=== PATIENT | male | born 1975 | race Caucasian/White ===

== ENCOUNTER → 2016-08-05 | Outpatient (CLI) | payer OTHER, BC ==
[~2016-08-05] MED LIST: FLEX5TAB3 PO; IBUP200T2 PO
--- NOTE | 2016-08-07 16:29 | REP ---
LEFT KNEE: REASON: Sprain. COMPARISON: None. FINDINGS: The compartments are symmetric and relatively well maintained. There is no acute fracture or destructive osseous lesion. Signed by Anoop Merida DO 08/07/2016 05:12 P
--- NOTE | 2016-08-07 16:31 | REP ---
LEFT HAND: REASON: Attention 4th metacarpal and 4th digit. FINDINGS: The joint spaces are symmetric and relatively well maintained. There is no evidence of acute fracture or destructive osseous lesion. IMPRESSION: Negative hand. Signed by Anoop Merida DO 08/07/2016 05:12 P
== END ==
LOC: M ADAMS 16:17
PROVIDERS: ATTEND Physician Assistant Medical
DX: S63.614A Unspecified sprain of right ring finger, initial encounter (principal); S83.92XA Sprain of unspecified site of left knee, initial encounter; X58.XXXA Exposure to other specified factors, initial encounter; Y92.89 Other specified places as the place of occurrence of the external cause; Y93.89 Activity, other specified; Y99.8 Other external cause status

== ENCOUNTER → 2018-02-13 | Outpatient (REF) | payer OTHER ==
[2018-02-13 14:06] LABS: ALBUMIN 3.4 GM/DL (3.2-5.2); ALBUMIN/GLOBULIN RATIO 1.06 (1.00-1.93); ALKALINE PHOSPHATASE 68 U/L (45-117); ALT/SGPT 56 U/L (12-78); AST/SGOT 40 U/L (7-37); BILIRUBIN,DIRECT 0.1 MG/DL (0.0-0.2); BILIRUBIN,TOTAL 0.4 MG/DL (0.2-1.0); CHOLESTEROL LEVEL 191 MG/DL (<200); CHOLESTEROL RISK RATIO 5.305 (<5); HDL CHOLESTEROL 36 MG/DL (>40); LDL CHOLESTEROL 131 MG/DL (<100); NON-HDL-C 155 MG/DL; TOTAL PROTEIN 6.6 GM/DL (6.4-8.2); TRIGLYCERIDES LEVEL 118 MG/DL (<150)
== END ==
LOC: M LABDRWAD 13:23
DX: I25.10 Atherosclerotic heart disease of native coronary artery without angina pectoris (principal)

== ENCOUNTER → 2018-04-24 | Outpatient (CLI) | payer BC, OTHER ==
--- NOTE | 2018-04-24 21:24 | REP ---
Clinical: Shortness of breath . Comparison: 12/31/2011 . Technique: PA and lateral. Findings: The mediastinum and cardiac silhouette are normal. The lung edge are clear and without acute consolidation, effusion, or pneumothorax. The skeletal structures are intact and normal. Impression: 1. No acute cardiopulmonary process. If the patient remains symptomatic consider chest CT for further investigation. Electronically Signed by oClin Ann MD 04/24/2018 09:15 P
== END ==
LOC: M SMT 14:50
PROVIDERS: ATTEND Internal Medicine Pulmonary Disease
DX: R06.02 Shortness of breath (principal)

== ENCOUNTER → 2018-05-17 | Outpatient (CLI) | payer BC, OTHER ==
--- NOTE | 2018-05-21 20:53 | SLEEPCENT ---
DATE OF PROCEDURE: 05/17/2018 ORDERED BY : Dr. Josue. Nocturnal polysomnography was performed for evaluation of sleep physiology in this patient with history of excessive snoring, excessive somnolence, and nonrestorative sleep who has comorbidities of coronary artery disease. 7 hours and 36 minutes of data were reviewed. There were 226 minutes of sleep identified. Sleep latency was prolonged at 97 minutes. REM latency was prolonged at 132 minutes. Sleep architecture initially fragmented, did improve late in the study. There were two REM cycles noted. Overall sleep efficiency was reduced at 50% due to periods of wake after sleep onset. The patient's electrocardiogram showed a sinus rhythm with an average heart rate of 60 beats minute rate ranged 50-80 beats per minute. EEG showed fairly normal waveforms for awake and sleep. There were no focal events identified. There were 289 respiratory events identified of 10 seconds in duration or greater for an apnea-hypopnea index of 76.7. The events were both obstructive mixed and central. 133 of 289 events were either mixed or central. The events were not exclusive to sleep stage nor body posture. Arousals from respiratory events were seen 25.2 times per hour and oxygen desaturations were seen into the 80's. There was also some limb activity noted but limb movement arousal index was only 1.1. IMPRESSION: Severe obstructive and possibly complex of sleep apnea syndrome (G47.31, G47.33). Apnea-hypopnea index 76.7. RECOMMENDATIONS: The patient should be encouraged to return to sleep disorder center at his earliest convenience for pressure therapy. In the interim alcohol and sedative avoidance should be practiced and cautioned exercised during operation of motor vehicles. Given the occurrence of central and mixed a bilevel device and backup rate may be necessary during the titration.
== END ==
LOC: M SLEEP 19:53
PROVIDERS: ATTEND Internal Medicine Pulmonary Disease
DX: G47.31 Primary central sleep apnea (principal); G47.33 Obstructive sleep apnea (adult) (pediatric)

== ENCOUNTER → 2018-07-05 | Outpatient (CLI) | payer BC, OTHER ==
--- NOTE | 2018-07-09 06:57 | SLEEPCENT ---
DATE OF PROCEDURE: 07/05/2018 ORDERED BY: Dr. Josue Nocturnal polysomnography was performed for the titration of pressure therapy in this patient with obstructive sleep apnea syndrome and apnea-hypopnea index of 76.7. For testing, a Present full-face mask of large size was used and 4 cm of water pressure were applied to the circuit and the lights were extinguished. 7 hours and 32 minutes of data were reviewed. There were 247 minutes of sleep identified. Sleep latency was prolonged at 75 minutes. Rapid eye movement (REM) latency was short at 59. Sleep architecture was good with 3 REM cycles. Overall sleep efficiency was 55.7%. The electrocardiogram showed a sinus rhythm with an average heart rate of 66 beats per minute. Electroencephalogram (EEG) showed normal waveforms for awake and sleep. Respiratory events were best palliated with CPAP at a pressure of +13. There was some limb activity noted, one train of 30 events and limb movement arousal index of 5.6. IMPRESSION: Obstructive sleep apnea syndrome (G47.33) RECOMMENDATION: Nightly use of pressure therapy at 13 cm of water.
== END ==
LOC: M SLEEP 20:04
PROVIDERS: ATTEND Internal Medicine Pulmonary Disease
DX: G47.33 Obstructive sleep apnea (adult) (pediatric) (principal)

== ENCOUNTER → 2018-07-10 | Outpatient (REF) | payer OTHER | LOC: M LAB REF 16:09 | PROVIDERS: ATTEND Otolaryngology | DX: H92.11 Otorrhea, right ear (principal) ==

== ENCOUNTER → 2018-08-06 | Outpatient (CLI) | payer BC, OTHER ==
[~2018-08-06] MED LIST changes: +METHACHOLINE KIT (J7674) INH ONE
--- NOTE | 2018-08-06 08:36 | PFTRPT ---
Site: [facility], [address] [place], [address] ID: [id number] Name: TREVIN FRAGOSO Visit Date: 08/06/2018 Second ID: [id number] Referring Doctor: Roger Josue MD Reviewing Doctor: Roger Josue MD [employer] Pianist: Shaggy SHELBY RRT Age: 42 : 1975 Sex: Male Race: Height: 71.00 Inches Weight: 280.00 Lbs BSA: 2.43 Order IDs: [id number] Requested Test(s): <RESP-PFT.METH CHAL> Diagnosis: R06.02 puffs of albuterol for post bronchodilator. Review Status: Not Reviewed Pre-Bronch Post-Bronch Pred Actual %Pred Actual %Chng SPIROMETRY FVC (L) 5.38 5.10 94 5.03 -1 FEV1 (L) 4.23 3.70 87 3.48 -5 FEV1/FVC (%) 79 72 91 69 -4 FEF 25% (L/sec) 9.01 5.64 62 5.16 -8 FEF 50% (L/sec) 5.89 3.30 56 2.90 -12 FEF 75% (L/sec) 2.04 1.28 62 0.99 -22 FEF 25-75% (L/sec) 3.87 2.82 72 2.32 -17 FEF Max (L/sec) 10.29 6.93 67 6.68 -3 FIVC (L) 4.68 5.24 11 FIF 50% (L/sec) 5.14 2.75 53 4.47 62 FIF Max (L/sec) 3.08 4.47 45 Expiratory Time (sec) 7.66 8.28 8 Back Extrap Vol (L) 0.13 0.09 -25 Time To FEFmax (sec) 0.092 0.082 -10
== END ==
LOC: M CARPUL 07:32
PROVIDERS: ATTEND Internal Medicine Pulmonary Disease
DX: R06.2 Wheezing (principal)
CPT/HCPCS: 94070; J7674

== ENCOUNTER 2019-02-05 06:46 | Day surgery (SDC) | payer BC, OTHER ==
[~2019-02-05] VITALS: Ht 180.3 cm; Wt 117.9 kg
[~2019-02-05 06:46] MED LIST changes: +ASPI81TA85 PO; +ATOR80TA59 PO; +BREO1INH3 INH; +FLON1SPR; +LORA-243 PO; -METHACHOLINE KIT (J7674) INH ONE; +METO25TA4 PO; +MULTCAP PO; +NITR0.4S14 SL; +OMEP40CA97 PO; +VENTAER INH; +VITA50005 PO
[2019-02-05] MEDS ORDERED: NS 1,000 ML IV ONE (07:00)
[2019-02-05] MEDS ORDERED: PROPOFOL 200 MG/20 ML VIAL As Ordered ONE ×3 (07:06→08:14)
[2019-02-05] MEDS ORDERED: LIDOCAINE 2% INJ 100 MG/5 ML SDV (FOR ANES.) As Ordered ONE (07:09)
[2019-02-05] MEDS ORDERED: fentaNYL 100 MCG/2 ML INJECTION (J3010) As Ordered ONE (07:13)
[2019-02-05] MEDS ORDERED: ALBUTEROL SULFATE 2.5 MG/0.5 ML INH NEB SOLN As Ordered ONE (07:28)
--- NOTE | 2019-02-05 07:58 | ROOR ---
Patient Name: Nathan Spears Procedure Date: 02/05/2019 7:45 AM Date of : 1975 Age: 43 Room: [facility] Gender: Male Note Status: Finalized Procedure: Upper Endoscopy + Biopsies Indications: Heartburn, Exclusion of Gallegos's esophagus Providers: Abraham Zaidi MD Referring MD: EPHRAIM Angel Requesting Provider: Medicines: Monitored Anesthesia Care Complications: No immediate complications. Procedure: Pre-Anesthesia Assessment: - The heart rate, respiratory rate, oxygen saturations, blood pressure, adequacy of pulmonary ventilation, and response to care were monitored throughout the procedure. The Endoscope was introduced through the mouth, and advanced to the second part of duodenum. The upper GI endoscopy was accomplished without difficulty. The patient tolerated the procedure well. Findings: The Z-line was irregular and was found 39 cm from the incisors. Multiple biopsies were obtained with cold forceps for evaluation to rule out Gallegos's Esophagus randomly at the gastroesophageal junction. A medium-sized hiatal hernia was present. No other significant abnormalities were identified in a careful examination of the stomach. The exam of the duodenum was otherwise normal. Impression: - Z-line irregular, 39 cm from the incisors. - Medium-sized hiatal hernia. - Multiple biopsies were obtained at the gastroesophageal junction. - The examination was otherwise normal. Recommendation: - Patient has a contact number available for emergencies. The signs and symptoms of potential delayed complications were discussed with the patient. Return to normal activities tomorrow. Written discharge instructions were provided to the patient. - High fiber diet. - Discharge patient to home. - Follow an antireflux regimen. - Continue present medications. - Await pathology results. - Telephone GI clinic for pathology results in 1 week. - Return to referring physician. - The findings and recommendations were discussed with the patient's family. Abraham Zaidi MD Abraham Zaidi MD 02/05/2019 7:58:02 AM Electronically signed by Abraham Zaidi MD Number of Addenda: 0 Note Initiated On: 02/05/2019 7:45 AM Estimated Blood Loss: Estimated blood loss: none.
[2019-02-05] MEDS ORDERED: ALBUTEROL SULFATE 2.5 MG/0.5 ML INH NEB SOLN INH ONE (08:00)
--- NOTE | 2019-02-05 08:28 | ROOR ---
Patient Name: Nathan Spears Procedure Date: 02/05/2019 7:46 AM Date of : 1975 Age: 43 Room: [facility] Gender: Male Note Status: Finalized Procedure: Total Colonoscopy to Cecum + Cold Snare Polypectomy + Hemoclips Indications: High risk colon cancer surveillance: Personal history of colonic polyps, Last colonoscopy: 2014 Providers: Abraham Zaidi MD Referring MD: EPHRAIM Angel Requesting Provider: Medicines: Monitored Anesthesia Care Complications: No immediate complications. Procedure: Pre-Anesthesia Assessment: - The heart rate, respiratory rate, oxygen saturations, blood pressure, adequacy of pulmonary ventilation, and response to care were monitored throughout the procedure. The Colonoscope was introduced through the anus and advanced to the cecum, identified by appendiceal orifice and ileocecal valve. The colonoscopy was performed without difficulty. The patient tolerated the procedure well. The quality of the bowel preparation was excellent. Findings: The perianal and digital rectal examinations were normal. Non-bleeding internal hemorrhoids were found during retroflexion. The hemorrhoids were small and Grade I (internal hemorrhoids that do not prolapse). Scattered small-mouthed diverticula were found in the recto-sigmoid colon, sigmoid colon and descending colon. Multiple sessile polyps were found in the ascending colon. The polyps were small in size. These polyps were removed with a cold snare. Resection and retrieval were complete. A medium polyp was found at 30 cm proximal to the anus. The polyp was semi-pedunculated. The polyp was removed with a cold snare. Resection and retrieval were complete. To prevent bleeding after the polypectomy, two hemostatic clips were successfully placed (MR conditional). There was no bleeding at the end of the procedure. The exam was otherwise without abnormality on direct and retroflexion views. Impression: - Non-bleeding internal hemorrhoids. - Diverticulosis in the recto-sigmoid colon, in the sigmoid colon and in the descending colon. - Multiple small polyps in the ascending colon, removed with a cold snare. Resected and retrieved. - One medium polyp at 30 cm proximal to the anus, removed with a cold snare. Resected and retrieved. Clips (MR conditional) were placed. - The examination was otherwise normal on direct and retroflexion views. - The exam was otherwise normal to the cecum. Recommendation: - Patient has a contact number available for emergencies. The signs and symptoms of potential delayed complications were discussed with the patient. Return to normal activities tomorrow. Written discharge instructions were provided to the patient. - High fiber diet. - Discharge patient to home. - Continue present medications. - Await pathology results. - Telephone GI clinic for pathology results in 1 week. - Repeat colonoscopy for surveillance based on pathology results. - Return to referring physician. - The findings and recommendations were discussed with the patient's family. Abraham Zaidi MD Abraham Zaidi MD 02/05/2019 8:27:54 AM Electronically signed by Abraham Zaidi MD Number of Addenda: 0 Note Initiated On: 02/05/2019 7:46 AM Estimated Blood Loss: Estimated blood loss: none.
[2019-02-05 08:45] VITALS: BP 110/61
== END 2019-02-05 08:52 | disposition home or self-care (01) ==
LOC: M OPP 06:46
PROVIDERS: ATTEND Internal Medicine Gastroenterology
DX: Z12.11 Encounter for screening for malignant neoplasm of colon (principal); Z86.010 Personal history of colon polyps; K64.0 First degree hemorrhoids; K57.30 Diverticulosis of large intestine without perforation or abscess without bleeding; D12.2 Benign neoplasm of ascending colon; D12.5 Benign neoplasm of sigmoid colon; R12 Heartburn; K22.8 Other specified diseases of esophagus; K44.9 Diaphragmatic hernia without obstruction or gangrene; Z95.5 Presence of coronary angioplasty implant and graft; R00.8 Other abnormalities of heart beat; I25.10 Atherosclerotic heart disease of native coronary artery without angina pectoris; I25.2 Old myocardial infarction; I10 Essential (primary) hypertension; E78.5 Hyperlipidemia, unspecified; J45.909 Unspecified asthma, uncomplicated; G47.30 Sleep apnea, unspecified; R06.83 Snoring; Z87.891 Personal history of nicotine dependence; Z83.71 Family history of colonic polyps; Z79.82 Long term (current) use of aspirin; Z79.899 Other long term (current) drug therapy
CPT/HCPCS: 43239; 45385; 88305; J3010

== ENCOUNTER 2022-10-16 12:28 | Emergency (ER) | payer BC, OTHER ==
[~2022-10-16] VITALS: Ht 180.3 cm; Wt 104.5 kg
[~2022-10-16 12:28] MED LIST changes: -ASPI81TA85 PO; +ASPI81TA86 PO; +OMEP40CA4 PO; -OMEP40CA97 PO
[2022-10-16] MEDS ORDERED: ASPIRIN 81MG CHEW TABLET PO ONE ×2 (12:45→14:55)
[2022-10-16 13:13] LABS: BASO # 0.1 10^3/uL (0.0-0.2); BASO % 0.7 % (0.0-1.0); EOS % 0.6 % (0.0-3.0); HEMATOCRIT 47.6 % (42.0-52.0); HEMOGLOBIN 16.2 g/dl (13.5-17.5); LYMPH # 1.2 10^3/uL (1.5-5.0); LYMPH % 16.2 % (24.0-44.0); MEAN CORPUSCULAR HEMOGLOBIN 33.5 pg (27.0-33.0); MEAN CORPUSCULAR VOLUME 98.6 fl (80.0-96.0); MONO % 13.8 % (2.0-8.0); NEUTROPHILS # 4.9 10^3/uL (1.5-8.5); NEUTROPHILS % 67.9 % (36.0-66.0); PLATELET COUNT, AUTOMATED 170 10^3/uL (150-450); RED BLOOD COUNT 4.83 10^6/uL (4.30-6.10); WHITE BLOOD COUNT 7.2 10^3/uL (4.0-10.0)
[2022-10-16 13:32] LABS: CK-MB VALUE MASS 1.9 NG/ML (<3.6)
[2022-10-16 13:34] LABS: LIPASE 55 U/L (12-53)
[2022-10-16 13:36] LABS: ALBUMIN 3.8 G/DL (3.2-5.2); ALKALINE PHOSPHATASE 59 U/L (46-116); ALT/SGPT 47 U/L (7.0-40); AST/SGOT 43 U/L (<34); BILIRUBIN,DIRECT 0.2 MG/DL (<0.4); BILIRUBIN,TOTAL 0.7 MG/DL (0.3-1.2); BLOOD UREA NITROGEN 17 MG/DL (9-23); CALCIUM LEVEL 9.9 MG/DL (8.5-10.1); CARBON DIOXIDE LEVEL 24 MMOL/L (20-31); CHLORIDE LEVEL 104 MMOL/L (98-107); CREATININE FOR GFR 0.87 MG/DL (0.70-1.30); GLOMERULAR FILTRATION RATE > 60.0 (>60); GLUCOSE, FASTING 118 MG/DL (60-100); POTASSIUM SERUM 4.3 MMOL/L (3.5-5.1); SODIUM LEVEL 139 MMOL/L (136-145); TOTAL PROTEIN 6.9 G/DL (5.7-8.2)
[2022-10-16 13:37] LABS: THYROID STIMULATING HORMONE 1.912 uIU/ML (0.55-4.78)
[2022-10-16 13:42] LABS: CPK CREATINE PHOSPHOKINASE 117 U/L (46-171); MB/CK RELATIVE INDEX 1.62 (< OR =4)
[2022-10-16 14:36] LABS: CK-MB VALUE MASS < 1.0 NG/ML (<3.6)
[2022-10-16 14:42] LABS: CPK CREATINE PHOSPHOKINASE 112 U/L (46-171); MB/CK RELATIVE INDEX 0.89 (< OR =4)
[2022-10-16] MEDS ORDERED: NITROGLYCERIN 2% OINT 1 GM *U/D* PKT TOP ONE (14:55)
[2022-10-16] MEDS ORDERED: HEPARIN SOD (PORCINE) 5000UNITS/ML 1ML VIAL/SYRINGE IV ONE (14:55)
[2022-10-16] MEDS ORDERED: HEPARIN DRIP 25,000 UNITS in IV 1 EA IV SCH (14:55)
[2022-10-16 15:21] VITALS: BP 118/82
[2022-10-16 16:22] VITALS: BP 134/88; TEMP 97.8; O2SAT 100
[2022-10-16 17:23] LABS: CK-MB VALUE MASS < 1.0 NG/ML (<3.6)
[2022-10-16 17:24] LABS: CPK CREATINE PHOSPHOKINASE 86 U/L (46-171); MB/CK RELATIVE INDEX 1.16 (< OR =4)
== END 2022-10-16 16:46 | disposition short-term general hospital (02) ==
LOC: EDBD 12:28 → EDSEX 12:28 → M ED 12:28
DX: I24.9 Acute ischemic heart disease, unspecified (principal); R00.1 Bradycardia, unspecified; I10 Essential (primary) hypertension; E78.5 Hyperlipidemia, unspecified; Z87.891 Personal history of nicotine dependence; Z79.52 Long term (current) use of systemic steroids; Z79.810 Long term (current) use of selective estrogen receptor modulators (SERMs); Z79.899 Other long term (current) drug therapy

== ENCOUNTER 2023-01-14 13:11 | Emergency (ER) | payer BC, OTHER ==
[~2023-01-14] VITALS: Ht 180.3 cm; Wt 95.9 kg
[2023-01-14 13:31] VITALS: TEMP 98.4
[2023-01-14] MEDS ORDERED: LORazepam 2 MG/ML 1ML VIAL IV STA (13:35)
[2023-01-14 13:55] LABS: BASO % 0.3 % (0.0-1.0); EOS # 0.1 10^3/uL (0.0-0.5); EOS % 0.7 % (0.0-3.0); HEMATOCRIT 37.7 % (42.0-52.0); HEMOGLOBIN 13.3 g/dl (13.5-17.5); LYMPH % 13.4 % (24.0-44.0); MEAN CORPUSCULAR HEMOGLOBIN 32.3 pg (27.0-33.0); MEAN CORPUSCULAR HGB CONC 35.3 g/dl (32.0-36.5); MEAN CORPUSCULAR VOLUME 91.5 fl (80.0-96.0); MONO # 1.3 10^3/uL (0.0-0.8); MONO % 18.2 % (2.0-8.0); NEUTROPHILS # 4.8 10^3/uL (1.5-8.5); NEUTROPHILS % 66.8 % (36.0-66.0); PLATELET COUNT, AUTOMATED 142 10^3/uL (150-450); RED BLOOD COUNT 4.12 10^6/uL (4.30-6.10); WHITE BLOOD COUNT 7.2 10^3/uL (4.0-10.0)
[2023-01-14 14:17] LABS: ETHYL ALCOHOL (ETHANOL) 0.007 % (0.000-0.010)
[2023-01-14 14:19] LABS: BLOOD UREA NITROGEN 10 MG/DL (9-23); CARBON DIOXIDE LEVEL 24 MMOL/L (20-31); CHLORIDE LEVEL 104 MMOL/L (98-107); CREATININE FOR GFR 0.81 MG/DL (0.70-1.30); GLOMERULAR FILTRATION RATE > 60.0 (>60); GLUCOSE, FASTING 111 MG/DL (60-100); MAGNESIUM LEVEL 1.6 MG/DL (1.8-2.4); SODIUM LEVEL 139 MMOL/L (136-145)
[2023-01-14 14:25] LABS: CPK CREATINE PHOSPHOKINASE 96 U/L (46-171)
[2023-01-14] MEDS ORDERED: MAG SULF 1GM/100ML (MAG RUN) 1 GM in IV 1 EA IV ONE (14:45)
[2023-01-14 15:30] VITALS: BP 116/73
[2023-01-14] MEDS ORDERED: SLOWTAB2 PO (16:51)
[2023-01-14 17:26] VITALS: O2SAT 96
== END 2023-01-14 17:48 | disposition home or self-care (01) ==
LOC: EDBD 13:11 → M ED 13:11
DX: G40.509 Epileptic seizures related to external causes, not intractable, without status epilepticus (principal); E83.42 Hypomagnesemia; D69.6 Thrombocytopenia, unspecified; G47.33 Obstructive sleep apnea (adult) (pediatric); K21.9 Gastro-esophageal reflux disease without esophagitis; I10 Essential (primary) hypertension; J45.909 Unspecified asthma, uncomplicated; E78.5 Hyperlipidemia, unspecified; F10.10 Alcohol abuse, uncomplicated; Z86.79 Personal history of other diseases of the circulatory system; Z79.52 Long term (current) use of systemic steroids; Z79.82 Long term (current) use of aspirin; Z79.810 Long term (current) use of selective estrogen receptor modulators (SERMs); Z79.899 Other long term (current) drug therapy
CPT/HCPCS: 70450; 71045; 80048; 82077; 82550; 83735; 84484; 85025; 93005; 93041; 94760; 96374; 96375; 99285; J2060; J3475

== ENCOUNTER → 2023-11-16 | Outpatient (CLI) | payer BC ==
[~2023-11-16] MED LIST changes: +SLOWTAB2 PO
[2023-11-16 14:51] LABS: BASO % 0.8 % (0.0-1.0); EOS # 0.1 10^3/uL (0.0-0.5); EOS % 1.8 % (0.0-3.0); HEMATOCRIT 43.6 % (42.0-52.0); HEMOGLOBIN 14.9 g/dl (13.5-17.5); LYMPH # 1.2 10^3/uL (1.5-5.0); LYMPH % 24.6 % (24.0-44.0); MEAN CORPUSCULAR HEMOGLOBIN 33.1 pg (27.0-33.0); MEAN CORPUSCULAR HGB CONC 34.2 g/dl (32.0-36.5); MEAN CORPUSCULAR VOLUME 96.9 fl (80.0-96.0); MONO % 20.8 % (2.0-8.0); NEUTROPHILS # 2.6 10^3/uL (1.5-8.5); NEUTROPHILS % 51.6 % (36.0-66.0); PLATELET COUNT, AUTOMATED 119 10^3/uL (150-450)
[2023-11-16 15:22] LABS: IRON (FE) 50 UG/DL (65-175); PERCENT SATURATION 15.4 % (19.7-50.0); TOTAL IRON BINDING CAPACITY 324 UG/DL (250-425)
[2023-11-16 15:23] LABS: ALKALINE PHOSPHATASE 56 U/L (46-116); ALT/SGPT 102 U/L (7.0-40); AST/SGOT 167 U/L (<34); BILIRUBIN,TOTAL 0.6 MG/DL (0.3-1.2); BLOOD UREA NITROGEN 11 MG/DL (9-23); CALCIUM LEVEL 9.4 MG/DL (8.5-10.1); CARBON DIOXIDE LEVEL 25 MMOL/L (20-31); CHLORIDE LEVEL 105 MMOL/L (98-107); CHOLESTEROL LEVEL 168 MG/DL (<200); CHOLESTEROL RISK RATIO 2.14 (<5); CREATININE FOR GFR 0.88 MG/DL (0.70-1.30); FERRITIN 596.2 NG/ML (10.5-307.3); GLOMERULAR FILTRATION RATE > 60.0 (>60); GLUCOSE, FASTING 77 MG/DL (60-100); HDL CHOLESTEROL 78.5 MG/DL (>40); HEMOGLOBIN A1c 4.9 % (4.0-6.0); LDL CHOLESTEROL 76.5 MG/DL (<100); MAGNESIUM LEVEL 1.7 MG/DL (1.8-2.4); NON-HDL-C 89.5 MG/DL; POTASSIUM SERUM 4.5 MMOL/L (3.5-5.1); SODIUM LEVEL 140 MMOL/L (136-145); TOTAL 25(OH) VITAMIN D 66.7 NG/ML (20.0-100.0); TOTAL PROTEIN 7.3 G/DL (5.7-8.2); TRIGLYCERIDES LEVEL 65 MG/DL (<150)
[2023-11-16 15:25] LABS: THYROID STIMULATING HORMONE 2.752 uIU/ML (0.55-4.78); VITAMIN B12 LEVEL 632 PG/ML (211-911)
[2023-11-16 15:26] LABS: FOLATE 18.54 NG/ML (>5.4); MAU/CREAT RATIO 62.3 MCG/MG (0.0-30.0)
== END ==
LOC: M PLALAB 10:29
PROVIDERS: ATTEND Physician Assistant Medical
DX: I25.10 Atherosclerotic heart disease of native coronary artery without angina pectoris (principal); E55.9 Vitamin D deficiency, unspecified; E78.5 Hyperlipidemia, unspecified; K63.5 Polyp of colon; D64.9 Anemia, unspecified; R73.01 Impaired fasting glucose; I50.33 Acute on chronic diastolic (congestive) heart failure

== ENCOUNTER 2024-03-28 10:30 | Emergency (ER) | payer BC ==
[~2024-03-28] VITALS: Ht 180.3 cm; Wt 100.8 kg
[2024-03-28 11:45] LABS: ETHYL ALCOHOL (ETHANOL) < 0.003 % (0.000-0.010)
[2024-03-28 11:47] LABS: ALBUMIN 3.4 G/DL (3.2-5.2); ALKALINE PHOSPHATASE 63 U/L (40-129); ALT/SGPT 109 U/L (7.0-40); AST/SGOT 210 U/L (<34); BILIRUBIN,DIRECT 0.5 MG/DL (<0.4); BILIRUBIN,TOTAL 1.2 MG/DL (0.3-1.2); BLOOD UREA NITROGEN 11 MG/DL (9-23); CALCIUM LEVEL 9.3 MG/DL (8.5-10.1); CARBON DIOXIDE LEVEL 17 MMOL/L (20-31); CHLORIDE LEVEL 104 MMOL/L (98-107); CREATININE FOR GFR 0.71 MG/DL (0.70-1.30); GLOMERULAR FILTRATION RATE > 60.0 (>60); GLUCOSE, FASTING 155 MG/DL (60-100); MAGNESIUM LEVEL 1.4 MG/DL (1.8-2.4); POTASSIUM SERUM 4.6 MMOL/L (3.5-5.1); SODIUM LEVEL 138 MMOL/L (136-145); TOTAL PROTEIN 7.1 G/DL (5.7-8.2)
[2024-03-28 11:47] LABS: BASO % 0.7 % (0.0-1.0); EOS % 0.2 % (0.0-3.0); HEMATOCRIT 39.3 % (42.0-52.0); HEMOGLOBIN 13.8 g/dl (13.5-17.5); LYMPH # 0.6 10^3/uL (1.5-5.0); LYMPH % 12.6 % (24.0-44.0); MEAN CORPUSCULAR HEMOGLOBIN 34.3 pg (27.0-33.0); MEAN CORPUSCULAR HGB CONC 35.1 g/dl (32.0-36.5); MEAN CORPUSCULAR VOLUME 97.8 fl (80.0-96.0); MONO # 0.6 10^3/uL (0.0-0.8); MONO % 13.5 % (2.0-8.0); NEUTROPHILS # 3.2 10^3/uL (1.5-8.5); NEUTROPHILS % 71.9 % (36.0-66.0); RED BLOOD COUNT 4.02 10^6/uL (4.30-6.10); WHITE BLOOD COUNT 4.4 10^3/uL (4.0-10.0)
[2024-03-28 11:50] LABS: CK-MB VALUE MASS < 1.0 NG/ML (<3.6)
[2024-03-28 12:04] LABS: CPK CREATINE PHOSPHOKINASE 91 U/L (46-171); MB/CK RELATIVE INDEX 1.09 (< OR =4)
[2024-03-28 12:25] LABS: PLATELET COUNT, AUTOMATED 97 10^3/uL (150-450)
[2024-03-28] MEDS: MAG SULF 1GM/100ML (MAG RUN) 1 GM in IV 1 EA IV ONE ×2 (13:06→15:08)
[2024-03-28 13:12] LABS: ABG BASE EXCESS -0.2 (-2.0-2.0); ABG HCO3 20.3 MMOL/L (22.0-26.0); ABG O2 SATURATION 98.2 % (95.0-99.0); ABG PARTIAL PRESSURE CO2 23.5 mmHg (35.0-45.0); ABG PARTIAL PRESSURE O2 106.8 mmHg (75.0-100.0); ABG STANDARD HCO3 24.3 MMOL/L. (22.0-26.0); ABG pH (ARTERIAL) 7.554 UNITS (7.350-7.450)
[2024-03-28] MEDS ORDERED: LORazepam 2 MG TAB PO PRN (13:15)
[2024-03-28 13:39] LABS: CK-MB VALUE MASS < 1.0 NG/ML (<3.6)
[2024-03-28] MEDS: THIAMINE 100 MG TAB PO SCH (13:39)
[2024-03-28 13:43] LABS: CPK CREATINE PHOSPHOKINASE 105 U/L (46-171); MB/CK RELATIVE INDEX 0.95 (< OR =4)
[2024-03-28 13:44] LABS: BLOOD UREA NITROGEN 11 MG/DL (9-23); CALCIUM LEVEL 9.1 MG/DL (8.5-10.1); CARBON DIOXIDE LEVEL 22 MMOL/L (20-31); CHLORIDE LEVEL 105 MMOL/L (98-107); CREATININE FOR GFR 0.74 MG/DL (0.70-1.30); GLOMERULAR FILTRATION RATE > 60.0 (>60); GLUCOSE, FASTING 104 MG/DL (60-100); POTASSIUM SERUM 3.9 MMOL/L (3.5-5.1); SODIUM LEVEL 140 MMOL/L (136-145)
[2024-03-28] MEDS: ONDANSETRON 4MG 2ML VIAL IV ONE (14:10)
[2024-03-28] MEDS: MAGNESIUM OXIDE 400MG TAB (MAG-OX) PO ONE (16:29)
[2024-03-28 17:05] LABS: MAGNESIUM LEVEL 1.5 MG/DL (1.8-2.4)
[2024-03-28 17:41] LABS: VENOUS BASE EXCESS -0.9 (-2.0-2.0); VENOUS HCO3 20.9 MMOL/L (23.0-27.0); VENOUS O2 SATURATION 97.9 % (60.0-80.0); VENOUS PARTIAL PRESSURE CO2 27.4 mmHg (38.0-50.0); VENOUS PARTIAL PRESSURE O2 98.2 mmHg (30.0-50.0); VENOUS STANDARD HCO3 23.8 MMOL/L; VENOUS TOTAL CO2 21.7 MMOL/L (24.0-28.0)
[2024-03-28] MEDS ORDERED: SLOWTAB2 PO (18:21)
[2024-03-28] MEDS ORDERED: ONDA-282 PO (18:21)
[2024-03-28 18:30] VITALS: BP 134/92; TEMP 99.1; O2SAT 97
[2024-03-29] MEDS ORDERED: FOLIC ACID 1MG TAB PO SCH (09:00)
[2024-03-29] MEDS ORDERED: MULTIVITAMINS/MINERALS THERAP 1 TAB PO SCH (09:00)
== END 2024-03-28 18:38 | disposition home or self-care (01) ==
LOC: EDBD 10:30 → M ED 10:30
DX: E83.42 Hypomagnesemia (principal); R56.9 Unspecified convulsions; I25.2 Old myocardial infarction; I10 Essential (primary) hypertension; J45.909 Unspecified asthma, uncomplicated
CPT/HCPCS: 36600; 70450; 71045; 80048; 80076; 82077; 82550; 82553; 82803; 83605; 83735; 84443; 84484; 85025; 85049; 85055; 93005; 93041; 94760; 96365; 96366; 99285; J3475

== ENCOUNTER → 2024-04-15 | Outpatient (CLI) | payer OTHER ==
[~2024-04-15] MED LIST changes: +ONDA-282 PO
[2024-04-15 14:35] LABS: BASO % 0.8 % (0.0-1.0); EOS # 0.1 10^3/uL (0.0-0.5); EOS % 2.3 % (0.0-3.0); HEMATOCRIT 44.2 % (42.0-52.0); HEMOGLOBIN 14.9 g/dl (13.5-17.5); LYMPH # 1.3 10^3/uL (1.5-5.0); LYMPH % 25.9 % (24.0-44.0); MEAN CORPUSCULAR HEMOGLOBIN 33.9 pg (27.0-33.0); MEAN CORPUSCULAR HGB CONC 33.7 g/dl (32.0-36.5); MEAN CORPUSCULAR VOLUME 100.5 fl (80.0-96.0); MONO # 0.8 10^3/uL (0.0-0.8); MONO % 16.1 % (2.0-8.0); NEUTROPHILS # 2.8 10^3/uL (1.5-8.5); NEUTROPHILS % 54.3 % (36.0-66.0); PLATELET COUNT, AUTOMATED 123 10^3/uL (150-450); WHITE BLOOD COUNT 5.2 10^3/uL (4.0-10.0)
[2024-04-15 14:40] LABS: LIPASE 72 U/L (12-53)
[2024-04-15 14:41] LABS: AMYLASE 99 U/L (30-118); TOTAL IRON BINDING CAPACITY 353 UG/DL (250-425)
[2024-04-15 14:42] LABS: ALBUMIN 3.6 G/DL (3.2-5.2); ALKALINE PHOSPHATASE 60 U/L (40-129); ALT/SGPT 129 U/L (7.0-40); AST/SGOT 231 U/L (<34); BILIRUBIN,TOTAL 1.3 MG/DL (0.3-1.2); BLOOD UREA NITROGEN 11 MG/DL (9-23); CALCIUM LEVEL 9.8 MG/DL (8.5-10.1); CARBON DIOXIDE LEVEL 25 MMOL/L (20-31); CHLORIDE LEVEL 104 MMOL/L (98-107); CHOLESTEROL LEVEL 234 MG/DL (<200); CHOLESTEROL RISK RATIO 2.89 (<5); CREATININE FOR GFR 0.79 MG/DL (0.70-1.30); FERRITIN 934.3 NG/ML (10.5-307.3); GLOMERULAR FILTRATION RATE > 60.0 (>60); GLUCOSE, FASTING 101 MG/DL (60-100); HDL CHOLESTEROL 80.9 MG/DL (>40); IRON (FE) 131 UG/DL (65-175); LDL CHOLESTEROL 138.1 MG/DL (<100); MAGNESIUM LEVEL 1.6 MG/DL (1.8-2.4); NON-HDL-C 153.1 MG/DL; PERCENT SATURATION 37.1 % (19.7-50.0); POTASSIUM SERUM 4.5 MMOL/L (3.5-5.1); SODIUM LEVEL 137 MMOL/L (136-145); THYROID STIMULATING HORMONE 4.011 uIU/ML (0.55-4.78); TOTAL 25(OH) VITAMIN D 47.1 NG/ML (20.0-100.0); TOTAL PROTEIN 7.3 G/DL (5.7-8.2); TRIGLYCERIDES LEVEL 75 MG/DL (<150)
[2024-04-15 14:43] LABS: VITAMIN B12 LEVEL 627 PG/ML (211-911)
[2024-04-15 15:00] LABS: HEPATITIS B SURFACE ANTIGEN NEGATIVE (NEGATIVE)
[2024-04-15 15:21] LABS: HEPATITIS B CORE ANTIBODY IGM NEGATIVE (NEGATIVE); HEPATITIS C VIRUS ABY INDEX < 0.02 INDEX (<0.8)
[2024-04-15 15:29] LABS: HEMOGLOBIN A1c 4.5 % (4.0-6.0)
[2024-04-17 14:17] LABS: ANA SCREEN, IFA NEGATIVE (NEGATIVE)
[2024-04-17 15:48] LABS: F002-IGE MILK 0.22 kU/L (<0.10)
[2024-04-17 16:12] LABS: IgG P18 AB NON-REACTIVE; IgG P23 AB NON-REACTIVE; IgG P28 AB NON-REACTIVE; IgG P30 AB NON-REACTIVE; IgG P39 AB NON-REACTIVE; IgG P41 AB REACTIVE; IgG P45 AB NON-REACTIVE; IgG P58 AB NON-REACTIVE; IgG P66 AB NON-REACTIVE; IgG P93 AB NON-REACTIVE; IgM P23 AB NON-REACTIVE; IgM P39 AB NON-REACTIVE; IgM P41 AB NON-REACTIVE; LYME IgG WB INTERPRETATION NEGATIVE (NEGATIVE); LYME IgM WB INTERPRETATION NEGATIVE (NEGATIVE)
== END ==
LOC: M LABDRWAD 09:31
PROVIDERS: ATTEND Physician Assistant Medical
DX: E78.5 Hyperlipidemia, unspecified (principal); G40.89 Other seizures; R73.01 Impaired fasting glucose; E83.42 Hypomagnesemia; G44.011 Episodic cluster headache, intractable; R94.5 Abnormal results of liver function studies; D64.9 Anemia, unspecified

== ENCOUNTER → 2024-04-21 | Outpatient (CLI) | payer BC ==
[~2024-04-21] MED LIST changes: +ISOVUE-370 76% 100ML VIAL ONE
== END ==
LOC: M PLAIMG 08:52
PROVIDERS: ATTEND Physician Assistant Medical
DX: R10.84 Generalized abdominal pain (principal)

== ENCOUNTER → 2024-06-16 | Outpatient (CLI) | payer BC ==
[~2024-06-16] MED LIST changes: -ISOVUE-370 76% 100ML VIAL ONE
== END ==
LOC: M PLAIMG 09:23
PROVIDERS: ATTEND Physician Assistant Medical
DX: H92.11 Otorrhea, right ear (principal)

== ENCOUNTER → 2024-10-20 | Outpatient (CLI) | payer BC | LOC: M RAD 08:53 | PROVIDERS: ATTEND Physician Assistant Medical | DX: Z87.891 Personal history of nicotine dependence (principal) ==

== ENCOUNTER → 2025-01-28 | Outpatient (CLI) | payer BC ==
[~2025-01-28] MED LIST changes: +SLOW1TAB3 PO; -SLOWTAB2 PO
== END ==
LOC: M PLAIMG 07:40
PROVIDERS: ATTEND Physician Assistant
DX: I71.20 Thoracic aortic aneurysm, without rupture, unspecified (principal)

== ENCOUNTER → 2025-02-03 | Outpatient (CLI) | payer BC | LOC: M RAD 16:46 | PROVIDERS: ATTEND Physician Assistant | DX: I71.21 Aneurysm of the ascending aorta, without rupture (principal) ==

== ENCOUNTER → 2025-02-10 | Outpatient (CLI) | payer BC | LOC: M PLARAD 14:30 | PROVIDERS: ATTEND Physician Assistant | DX: R91.1 Solitary pulmonary nodule (principal) | CPT/HCPCS: 78815; A9552 ==